=== PATIENT | male | born 1950 | race African-American/Black ===

== ENCOUNTER → 2017-01-13 | Day surgery (SDC) | payer BC ==
[~2017-01-13] MED LIST: CARAFATE1 GM; DULOXETINE HCL60 M1 PO; FEROSUL325 MG; GABAPENTIN600 MG PO; HYDROCODON-ACE1 EAC7 PO; KLOR-CON PO; LANTUS SOL100 UNIT/1 SUBQ; LEVITRA10 MG PO; METFORMIN HCL1000 M1 PO; PRAVASTATIN SOD80 MG PO; SYMBICORT 80-10.2 GM; TOPROL XL50 MG PO; VITAMIN D350000 UNIT PO; VITAMIN D400 UNI2; ZANTAC150 M1; ZESTORETIC 20-1 EAC1 PO
--- NOTE | ~2017-01-13 | OR ---
Unit #: [id number] #: [id number] Patient: PENNY YAN [id number] [facility] [address] [place], [place] [address] [id number] O MR#: [id number] NAME: PENNY YAN ROOM: Date of Procedure: 01/13/2017 Admission Date: 01/13/2017 Surgeon: Douglas Adame M.D. : 1950 Attending Physician: Douglas Adame M.D. OPERATIVE REPORT PRIMARY CARE PHYSICIAN Carmen Rose M.D. PREOPERATIVE DIAGNOSES 1. Iron-deficiency anemia. 2. Family history of colon cancer. 3. Rectal bleeding. POSTOPERATIVE DIAGNOSES 1. Large gastric ulcer. 2. Grade 2 internal hemorrhoids. PROCEDURES PERFORMED Esophagogastroduodenoscopy with biopsy x6 and colonoscopy to cecum. ANESTHESIA Monitored anesthesia. INDICATIONS FOR PROCEDURE Mr. Yan is a pleasant 66-year-old gentleman with a family history of colon cancer, who has significant iron-deficiency anemia. He discussed some bright red blood per rectum, but denied any weight loss. He has been having some intermittent nausea, but no hematemesis or melena. DESCRIPTION OF PROCEDURE The patient was admitted to [facility], positively identified, transported to the endoscopy suite. After appropriate and monitoring positioning, he was sedated by the anesthesiologist and a bite-block was placed. The endoscope was passed through the oral cavity in the esophagus. Under direct vision, we passed through the esophagus and the GE junction was well demarcated at 44 cm from the incisors. As I entered the stomach and insufflated, the patient was noted to have a large shaggy ulcerated mass at the incisura. I could pass through the pylorus down the second and third portion of the duodenum, duodenum and duodenal bulb were normal. As I came back in the stomach, the mass was re-visualized. A cold biopsy forceps was used to take biopsies of a very hard irregular and suspicious-appearing gastric ulcer. As I came back in a retrograde fashion, no other abnormalities were noted on his EGD. After completion of the upper scope, the patient was repositioned. On rectal examination, there was no palpable abnormality and the prostate was normal for age. No hard nodules were noted. Colonoscope was passed through the anal verge throughout the extent of the colon to the cecum. On antegrade Unit #: [id number] #: [id number] Patient: PENNY YAN and retrograde visualization, no abnormalities throughout the colon were noted. The patient tolerated the procedure well and was transported to recovery in stable condition. He will be given some acid blockade and Carafate and sent home on prescription for Zantac and Carafate. Because of his profound iron-deficiency, he will be started on ferrous sulfate. I will await the biopsies because the mass and ulcer certainly suspicious for gastric carcinoma. There was some evidence of possible external compression on the antrum of the stomach, and so I would like to follow that up with a CT scan. Findings were discussed with the family. They understand and agree to follow up. Prescriptions were given to the family. Dictated by... Tucker Kamara/katie TD: 01/14/2017 03:15 JOB #: [id number] OPERATIVE REPORT Page 1 of 1 X Douglas Adame MD PROCEDURE OPERATIVE NOTE
== END | disposition home or self-care (01) ==
LOC: COPS 11:07
DX: K25.9 Gastric ulcer, unspecified as acute or chronic, without hemorrhage or perforation (principal); D50.9 Iron deficiency anemia, unspecified; K64.1 Second degree hemorrhoids; I11.0 Hypertensive heart disease with heart failure; I50.9 Heart failure, unspecified; J44.9 Chronic obstructive pulmonary disease, unspecified; E11.9 Type 2 diabetes mellitus without complications; E78.5 Hyperlipidemia, unspecified; M17.10 Unilateral primary osteoarthritis, unspecified knee; F17.210 Nicotine dependence, cigarettes, uncomplicated; Z79.891 Long term (current) use of opiate analgesic; Z79.51 Long term (current) use of inhaled steroids; Z79.4 Long term (current) use of insulin; Z79.899 Other long term (current) drug therapy
CPT/HCPCS: 82947; 88305; 88312; C9113; J2250